=== PATIENT | female | born 1945 | race Caucasian/White ===

== ENCOUNTER 2019-03-28 08:00 | Emergency (ER) | payer MEDICARE ==
[~2019-03-28] VITALS: Ht 165.1 cm; Wt 60.0 kg
--- NOTE | 2019-03-28 08:19 | NUR ---
GIRMA. REPORT RECEIVED FROM EMS. PT [facility]. PT C/O RIGHT SIDED BACK AND RIB PAIN. PT DOESN'T KNOW HITTING HEAD. PT TAKING COUMADIN. PT'S AOX4. RESPS EVEN AND UNLABORED. ALL MONITORS IN PLACE. CALL LIGHT WITHIN REACH. PA AT BEDSIDE TO EVALUATE AT THIS TIME. EKG DONE AT BEDSIDE BY EMT.
[2019-03-28] MEDS ORDERED: ATOR-2 PO (08:21)
--- NOTE | 2019-03-28 08:21 | NUR ---
PT IN XRAY NOW.
[2019-03-28] MEDS ORDERED: LEVO50TA5 PO (08:22)
[2019-03-28] MEDS ORDERED: CARV6.252 PO (08:22)
[2019-03-28] MEDS ORDERED: VITA1CAP5 PO (08:22)
[2019-03-28] MEDS ORDERED: CHOL2000 PO (08:23)
[2019-03-28] MEDS ORDERED: SERT100T32 PO (08:23)
[2019-03-28] MEDS ORDERED: WARF4TAB65 PO (08:24)
--- NOTE | 2019-03-28 08:39 | NUR ---
PT BACK TO ROOM FROM XRAY.
--- NOTE | 2019-03-28 08:47 | NUR ---
PT'S STRAIGHT CATH'D USING STERILE TECHNIQUE. THIS RN WALKED TO LAB FOR UA.
[2019-03-28 08:53] LABS: BASOPHILS # (AUTO) 0.03 x10^3/uL (0-0.1); BASOPHILS % (AUTO) 0 % (0-1); EOSINOPHILS # (AUTO) 0.36 x10^3/uL (0-0.4); EOSINOPHILS % (AUTO) 4 % (1-7); LYMPHOCYTES # (AUTO) 1.29 x10^3/uL (1-3.4); LYMPHOCYTES % (AUTO) 13 % (22-44); MD NO; MEAN CORPUSCULAR HEMOGLOBIN 29.9 pg (27.0-34.8); MEAN CORPUSCULAR HGB CONC 32.7 g/dL (32.4-35.8); MEAN CORPUSCULAR VOLUME 91.4 fL (80-100); MEAN PLATELET VOLUME 7.9 fL (7.4-10.4); MONOCYTES # (AUTO) 0.58 x10^3/uL (0.2-0.8); MONOCYTES % (AUTO) 6 % (2-9); NEUTROPHILS # (AUTO) 7.51 x10^3/uL (1.8-6.8); NEUTROPHILS % (AUTO) 77 % (42-75); PLATELET COUNT 201 x10^3/uL (130-400); RED BLOOD COUNT 4.09 x10^6/uL (3.82-5.3); RED CELL DISTRIBUTION WIDTH 16.3 % (9.6-15.2)
[2019-03-28 08:58] LABS: INTERNATIONAL NORMALIZED RATIO 1.32 (0.93-1.1); PROTHROMBIN TIME 13.7 Seconds (9.6-11.5)
--- NOTE | 2019-03-28 08:59 | NUR ---
report received from MARGO Rodriguez; pt in CT at this time.
[2019-03-28] MEDS ORDERED: ONDANSETRON 2MG/ML, 2ML IVPush ONE (09:00)
[2019-03-28] MEDS ORDERED: MORPHINE SULFATE 4 MG/ML, 1ML IVPush PRN (09:00)
[2019-03-28] MEDS ORDERED: SODIUM CHLORIDE FLUSH 10ML SYR IVF ONE (09:00)
[2019-03-28 09:01] LABS: ALANINE AMINOTRANSFERASE 28 U/L (12-78); ALBUMIN 3.4 g/dL (3.4-5.0); ANION GAP 4 mmol/L (5-15); CALCIUM 8.7 mg/dL (8.5-10.1); CHLORIDE 112 mmol/L (98-107); CREATININE 0.91 mg/dL (0.55-1.02)
[2019-03-28 09:03] LABS: ALKALINE PHOSPHATASE 79 U/L (45-117); BILIRUBIN,TOTAL 0.7 mg/dL (0.2-1.0); TOTAL PROTEIN 7.1 g/dL (6.4-8.2)
--- NOTE | 2019-03-28 09:03 | NUR ---
pt back from CT.
[2019-03-28] MEDS ORDERED: MORPHINE SULFATE 4 MG/ML, 1ML ONE (09:11)
[2019-03-28] MEDS ORDERED: ONDANSETRON 2MG/ML, 2ML ONE (09:11)
[2019-03-28 09:12] LABS: MICROSCOPIC AUTO
[2019-03-28 09:18] LABS: CULTURE INDICATED? YES
--- NOTE | 2019-03-28 09:19 | NUR ---
PT REPORTS 6/10 RIGHT LATERAL THORACIC PAIN PRIOR TO MORPHINE. PIV STARTED, PT MEDICATED PER EMAR, TOLERATED WELL. PT GIVEN 2MG MORPHINE PER TRIP BECERRIL'S INSTRUCTIONS, TO BE RE-DOSED IF NEEDED. PT A&OX4, RESPS EVEN AND UNLABORED. NSR ON MUSIC VIDEO DIRECTOR. PT DENIES NECK PAIN. AWAITING CT AND UA RESULTS AT THIS TIME.
--- NOTE | 2019-03-28 09:30 | NUR ---
LAB CALLED TO CLARIFY URINE SOURCE, PREVIOUS RN COLLECTED URINE VIA STRAIGHT CATH. LAB INFORMED URINE SENT WAS COLLECTED VIA STRAIGHT CATH.
[2019-03-28 10:09] VITALS: BP 124/64
--- NOTE | 2019-03-28 10:14 | NUR ---
all results reviewed with EDMD Adan MD instructed RN to ambulate patient to assess readiness for discharge home. pt ambulated with RN, gait steady, unassisted. pt reports pain resolved s/p morphine. pt a&ox4, resps even and unlabored. pt to be discharged once transport arranged.
--- NOTE | 2019-03-28 10:21 | NUR ---
MD Arellano notified that pt is ambulatory, gait steady without any assistance.
--- NOTE | 2019-03-28 10:27 | NUR ---
[facility] living called to pick patient up, staff member states that they do not provide this service.
--- NOTE | 2019-03-28 10:28 | NUR ---
Pt family contact info is in paperwork from assisted living. pt's listed contacts are daughter in law, and rajeev. pt gave RN permission to contact these family members to provide ride to assisted living. both numbers were called with no answer. family members listed were [phone] (daughter in law Alysa) and [phone] (rajeev Harper). Messages were left (no patient identifiers left in messages) with instructions to call ED back.
--- NOTE | 2019-03-28 11:26 | NUR ---
PIV dc'd with tip intact. pt a&ox4, resps even and unlabored, ambulatory with steady gait, unassisted. pt has no complaint of pain at time of dc. pt's daughter in law Rowena called back, stated unable to pick patient up. Daugther in law given update of results/POC with patient permission. pt dressed, wheeled to dc desk in [place]. taxi called to collect patient and bring to [facility] assisted living. [facility] assisted living notified pt is en route, assisted living staff state they will assist pt out of cab into room. pt given dc instructions and script, educated regarding rx for omnicef. pt verbalizes understanding. josen at co.
--- NOTE | 2019-03-28 11:35 | NUR ---
this RN spoke with [facility] staff who were informed pt has script to fill. Staff state that they will be able to take script to pharmacy and provide patient with prescription ordered in ED.
== END 2019-03-28 11:27 | disposition home or self-care (01) ==
LOC: ED 11:00
DX: S20.211A Contusion of right front wall of thorax, initial encounter (principal); N30.00 Acute cystitis without hematuria; E78.00 Pure hypercholesterolemia, unspecified; E03.9 Hypothyroidism, unspecified; W19.XXXA Unspecified fall, initial encounter; Y93.89 Activity, other specified; Y92.89 Other specified places as the place of occurrence of the external cause; Y99.8 Other external cause status
CPT/HCPCS: 36415; 70450; 71101; 80053; 81001; 85025; 85610; 87077; 87086; 87186; 93005; 96374; 96375; 99284; J2270; J2405

== ENCOUNTER 2019-12-13 11:28 | Emergency (ER) | payer MEDICARE, MEDICAID ==
[~2019-12-13] VITALS: Ht 162.6 cm; Wt 54.5 kg
[~2019-12-13 11:28] MED LIST: ATOR-2 PO; CARV6.252 PO; CHOL2000 PO; LEVO50TA5 PO; SERT100T32 PO; VITA1CAP5 PO; WARF4TAB65 PO
[2019-12-13 12:21] LABS: ALBUMIN 3.1 g/dL (3.4-5.0); ANION GAP 7 mmol/L (5-15); CHLORIDE 112 mmol/L (98-107)
--- NOTE | 2019-12-13 12:23 | NUR ---
report taken from MARGO Arellano, pt resting on gurney, a&o, resps even and unlabored, isaias. pt brought to ED for depression and lack of appetite. pt has no complaint at this time. awaiting labwork and psych direct care specialist consult.
[2019-12-13 12:29] LABS: ALANINE AMINOTRANSFERASE 30 U/L (12-78); ALKALINE PHOSPHATASE 73 U/L (45-117); BILIRUBIN,TOTAL 0.5 mg/dL (0.2-1.0); CREATININE 1.12 mg/dL (0.55-1.02); FREE T4 (FREE THYROXINE) 1.11 ng/dL (0.76-1.46)
--- NOTE | 2019-12-13 13:06 | NUR ---
lab at bedside for redraw.
--- NOTE | 2019-12-13 13:15 | NUR ---
SIMON FRANKLIN AT BEDSIDE TO COMPLETE PSYCH EVAL.
[2019-12-13 13:31] LABS: BASOPHILS # (AUTO) 0.03 x10^3/uL (0-0.1); BASOPHILS % (AUTO) 0 % (0-1); EOSINOPHILS # (AUTO) 0.21 x10^3/uL (0-0.4); EOSINOPHILS % (AUTO) 2 % (1-7); LYMPHOCYTES # (AUTO) 1.58 x10^3/uL (1-3.4); LYMPHOCYTES % (AUTO) 17 % (22-44); MD NO; MEAN CORPUSCULAR HEMOGLOBIN 29.3 pg (27.0-34.8); MEAN CORPUSCULAR HGB CONC 32.2 g/dL (32.4-35.8); MEAN PLATELET VOLUME 7.9 fL (7.4-10.4); MONOCYTES # (AUTO) 0.74 x10^3/uL (0.2-0.8); MONOCYTES % (AUTO) 8 % (2-9); NEUTROPHILS # (AUTO) 6.82 x10^3/uL (1.8-6.8); NEUTROPHILS % (AUTO) 73 % (42-75); PLATELET COUNT 170 x10^3/uL (130-400); RED BLOOD COUNT 4.33 x10^6/uL (3.82-5.3); RED CELL DISTRIBUTION WIDTH 14.7 % (9.6-15.2)
--- NOTE | 2019-12-13 13:48 | NUR ---
rita magana is pt's neice- called to leave phone number ( [phone] ) in case staff have questions regarding pt's history.
[2019-12-13] MEDS ORDERED: ALBU90AE INH (14:01)
[2019-12-13] MEDS ORDERED: RIVA20TA PO (14:01)
[2019-12-13] MEDS ORDERED: CHOL10003 PO (14:01)
[2019-12-13] MEDS ORDERED: ACET325T26 PO (14:01)
[2019-12-13] MEDS ORDERED: DULO60CA56 PO (14:02)
--- NOTE | 2019-12-13 14:07 | NUR ---
pt admits SI to elsa marte, pt states she has not thought out plan to carry out intent. legal hold has been placed. pt sleeping at this time, resps even and unlabored, safety checks q15 min in place by this RN.
[2019-12-13 14:47] LABS: SALICYLATE LEVEL < 1.7 mg/dL (2.8-20.0)
--- NOTE | 2019-12-13 14:50 | NUR ---
PT MOVED TO SECURE ROOM, 3. REPORT TO MARGO HUA.
[2019-12-13 15:06] VITALS: BP 105/60
--- NOTE | 2019-12-13 15:09 | NUR ---
PT MOVED TO ROOM 3 FOR SAFETY. ASSUMED CARE OF PATIENT. VS UPDATED. PT WATCHING TV. PT DENIES SUICIDAL IDEATION AT THIS TIME. CALL BUTTON WITHIN REACH.
--- NOTE | 2019-12-13 15:15 | NUR ---
BREAK RN: 1 OF 1 BAGS OF BELONGINGS PLACED IN PSYCH LOCKER
[2019-12-13 15:26] LABS: MICROSCOPIC AUTO
[2019-12-13 15:38] LABS: AMPHETAMINE SCREEN, URINE Negative (Negative); BARBITURATE SCREEN, URINE Negative (Negative); BENZODIAZEPINE SCREEN, URINE Negative (Negative); CANNABINOID SCREEN, URINE Negative (Negative); COCAINE SCREEN, URINE Negative (Negative); METHADONE SCREEN, URINE Negative (Negative); OPIATE SCREEN, URINE Negative (Negative)
[2019-12-13] MEDS ORDERED: CEFTRIAXONE PMX 1GM/50ML 50 ML ONE (15:53)
[2019-12-13] MEDS ORDERED: CEFTRIAXONE PMX 1GM/50ML 50 ML IVPB ONE (16:00)
== END 2019-12-13 16:38 | disposition home or self-care (01) ==
LOC: ED 12:00
DX: F33.9 Major depressive disorder, recurrent, unspecified (principal); R45.851 Suicidal ideations; N30.00 Acute cystitis without hematuria; E03.9 Hypothyroidism, unspecified
CPT/HCPCS: 36415; 80053; 80307; 81001; 84439; 84443; 85025; 87077; 87086; 96365; 99284; J0696; 87186